=== PATIENT | male | born 1965 | race Two or more races ===

== ENCOUNTER → 2025-08-02 | Outpatient (CLI) | payer MEDICARE, MEDICAID, SELFPAY ==
--- NOTE | 2025-08-02 | XR_ITS ---
EXAMINATIONS: Transforaminal epidural steroid injection, lumbar, single level, includes fluoro guidance, right L4-L5. Fluoroscopy Opioid lumbar spine single view INDICATIONS: Lower right-sided back pain months. Exam date and time: August 02, 20252003 hours Technique And Findings: Patient is positioned prone on the fluoroscopic table. Oblique fluoroscopic views obtained. Local anesthesia is obtained with 1% lidocaine. 22-gauge needle was advanced toward the 6:00 position of the pedicle. Fluoroscopy is utilized to ensure the needle tip is within the safe triangle After negative aspiration for blood and CSF, 40 mg Depo-Medrol is injected without difficulty. Patient tolerated the procedure well and in satisfactory and stable condition upon completion of procedure. Estimated blood loss 0 cc IMPRESSION: Successful transforaminal epidural steroid injection as described above Fluoroscopy 0.2-minute radiation dose 4.20 mGy 1 spot fluoroscopic lumbar spine film.
--- NOTE | 2025-08-02 | XR_ITS ---
EXAMINATIONS: Transforaminal epidural steroid injection, lumbar, single level, includes fluoro guidance, right L5-S1. Fluoroscopy OPL lumbar spine single view INDICATIONS: Lower right-sided back pain minus. Exam date and time: August 02, 2025, 12:23 p.m. Technique And Findings: Patient is positioned prone on the fluoroscopic table. Oblique fluoroscopic views obtained. Local anesthesia is obtained with 1% lidocaine. 22-gauge needle was advanced toward the 6:00 position of the pedicle. Fluoroscopy is utilized to ensure the needle tip is within the safe triangle After negative aspiration for blood and CSF, 40 mg triamcinolone is injected without difficulty. Patient tolerated the procedure well and in satisfactory and stable condition upon completion of procedure. Estimated blood loss 0 cc IMPRESSION: Successful transforaminal epidural steroid injection as described above Fluoroscopy 0.2-minute radiation dose 4.20 mGy 1 spot fluoroscopic lumbar spine:.
--- NOTE | 2025-08-02 11:00 | XR_ITS ---
EXAMINATIONS: Transforaminal epidural steroid injection, lumbar, single level, includes fluoro guidance, left L5-S1. Fluoroscopy RPO lumbar spine single view INDICATIONS: Lower back pain radiating to the left lower back months. Exam date and time: August 02, 2025, 12:22 p.m. Technique And Findings: Patient is positioned prone on the fluoroscopic table. Oblique fluoroscopic views obtained. Local anesthesia is obtained with 1% lidocaine. 22-gauge needle was advanced toward the 6:00 position of the pedicle. Fluoroscopy is utilized to ensure the needle tip is within the safe triangle After negative aspiration for blood and CSF, 40 mg triamcinolone is injected without difficulty. Patient tolerated the procedure well and in satisfactory and stable condition upon completion of procedure. Estimated blood loss 0 cc IMPRESSION: Successful transforaminal epidural steroid injection as described above Fluoroscopy 0.2-minute radiation dose 4.20 mGy 1 spot fluoroscopic lumbar spine film.
--- NOTE | 2025-08-02 11:00 | XR_ITS ---
EXAMINATIONS: Transforaminal epidural steroid injection, lumbar, single level, includes fluoro guidance, left L4-L5. Fluoroscopy RPO lumbar spine single view INDICATIONS: Lower back pain radiating to the left side months. Exam date and time: August 02, 2025, 1202 hours Technique And Findings: Patient is positioned prone on the fluoroscopic table. Oblique fluoroscopic views obtained. Local anesthesia is obtained with 1% lidocaine. 22-gauge needle was advanced toward the 6:00 position of the pedicle. Fluoroscopy is utilized to ensure the needle tip is within the safe triangle After negative aspiration for blood and CSF, 40 mg triamcinolone is injected without difficulty. Patient tolerated the procedure well and in satisfactory and stable condition upon completion of procedure. Estimated blood loss 0 cc IMPRESSION: Successful transforaminal epidural steroid injection as described above Fluoroscopy 0.2-minute radiation dose 4.20 mGy 1 spot fluoroscopic lumbar spine films.
== END | disposition home or self-care (01) ==
LOC: SIRX 10:24
PROVIDERS: PCP Family Medicine; Referring Provider Psychiatry & Neurology Neurology; Visit Provider Radiology Diagnostic Radiology
DX: M48.061 Spinal stenosis, lumbar region without neurogenic claudication (principal)
CPT/HCPCS: 64493; 64494 ×2

== ENCOUNTER → 2025-08-16 | Outpatient (CLI) | payer MEDICARE, MEDICAID, SELFPAY ==
--- NOTE | 2025-08-16 | XR_ITS ---
EXAMINATIONS: Transforaminal epidural steroid injection, lumbar, single level, includes fluoro guidance, right L5-S1. Fluoroscopy RPO lumbar spine single view INDICATION: Right-sided lower back pain months. Exam date and time: August 16, 2025 1030 hours Technique And Findings: Patient is positioned prone on the fluoroscopic table. Oblique fluoroscopic views obtained. Local anesthesia is obtained with 1% lidocaine. 22-gauge needle was advanced toward the 6:00 position of the pedicle. Fluoroscopy is utilized to ensure the needle tip is within the safe triangle After negative aspiration for blood and CSF, 1 cc Depo-Medrol is injected without difficulty. Patient tolerated the procedure well and in satisfactory and stable condition upon completion of procedure. Estimated blood loss 0 cc IMPRESSION: Successful transforaminal epidural steroid injection as described above Fluoroscopy 0.3-minute radiation dose 14.56 mGy 1 spot fluoroscopic lumbar spine.
--- NOTE | 2025-08-16 | XR_ITS ---
EXAMINATIONS: Transforaminal epidural steroid injection, lumbar, single level, includes fluoro guidance, right L4-L5. Fluoroscopy No field lumbar spine single view INDICATIONS: Right-sided lower back pain months. Exam date and time: August 16 2025, 1049 hours Technique And Findings: Patient is positioned prone on the fluoroscopic table. Oblique fluoroscopic views obtained. Local anesthesia is obtained with 1% lidocaine. 22-gauge needle was advanced toward the 6:00 position of the pedicle. Fluoroscopy is utilized to ensure the needle tip is within the safe triangle After negative aspiration for blood and CSF, 1 cc Depo-Medrol is injected without difficulty. Patient tolerated the procedure well and in satisfactory and stable condition upon completion of procedure. Estimated blood loss 0 cc IMPRESSION: Successful transforaminal epidural steroid injection as described above Fluoroscopy 0.3-minute radiation dose 14.56 mGy 1 spot fluoroscopic lumbar spine.
--- NOTE | 2025-08-16 10:00 | XR_ITS ---
EXAMINATIONS: Transforaminal epidural steroid injection, lumbar, single level, includes fluoro guidance, left L4-L5 RPO lumbar spine single view. Fluoroscopy Exam date and time: August 16, 2025, 0955 hours INDICATIONS: Left lower back pain months Technique And Findings: Patient is positioned prone on the fluoroscopic table. Oblique fluoroscopic views obtained. Local anesthesia is obtained with 1% lidocaine. 22-gauge needle was advanced toward the 6:00 position of the pedicle. Fluoroscopy is utilized to ensure the needle tip is within the safe triangle After negative aspiration for blood and CSF, 1 cc Depo-Medrol is injected without difficulty. Patient tolerated the procedure well and in satisfactory and stable condition upon completion of procedure. Estimated blood loss 0 cc IMPRESSION: Successful transforaminal epidural steroid injection as described above Fluoroscopy 0.3-minute radiation dose 14.56 mGy 1 spot fluoroscopic lumbar spine film.
--- NOTE | 2025-08-16 10:00 | XR_ITS ---
EXAMINATIONS: Transforaminal epidural steroid injection, lumbar, single level, includes fluoro guidance, left L5-S1. Fluoroscopy RPO lumbar spine single view INDICATIONS: Left-sided lower back pain months. Exam date and time: August 16, 2025, 10:48 a.m. Technique And Findings: Patient is positioned prone on the fluoroscopic table. Oblique fluoroscopic views obtained. Local anesthesia is obtained with 1% lidocaine. 22-gauge needle was advanced toward the 6:00 position of the pedicle. Fluoroscopy is utilized to ensure the needle tip is within the safe triangle After negative aspiration for blood and CSF, 1 cc Depo-Medrol is injected without difficulty. Patient tolerated the procedure well and in satisfactory and stable condition upon completion of procedure. Estimated blood loss 0 cc IMPRESSION: Successful transforaminal epidural steroid injection as described above Fluoroscopy 0.3-minute radiation dose 14.56 mGy 1 spot fluoroscopic lumbar spine film.
== END | disposition home or self-care (01) ==
LOC: SIRX 09:42
PROVIDERS: PCP Psychiatry & Neurology Neurology; Referring Provider Psychiatry & Neurology Neurology; Visit Provider Radiology Diagnostic Radiology
DX: M48.061 Spinal stenosis, lumbar region without neurogenic claudication (principal)
CPT/HCPCS: 64483; 64484; J1010

== ENCOUNTER → 2025-09-04 | Outpatient (CLI) | payer MEDICARE, MEDICAID, SELFPAY ==
--- NOTE | 2025-09-04 | XR_ITS ---
EXAMINATIONS: Transforaminal epidural steroid injection, lumbar, single level, includes fluoro guidance, right L4-L5. Fluoroscopy LPO lumbar spine single view INDICATIONS: Right lower back pain months. Exam date and time: September 04, 2025, 1356 hours Technique And Findings: Patient is positioned prone on the fluoroscopic table. Oblique fluoroscopic views obtained. Local anesthesia is obtained with 1% lidocaine. 22-gauge needle was advanced toward the 6:00 position of the pedicle. Fluoroscopy is utilized to ensure the needle tip is within the safe triangle After negative aspiration for blood and CSF, 1 cc Depo-Medrol is injected without difficulty. Patient tolerated the procedure well and in satisfactory and stable condition upon completion of procedure. Estimated blood loss 0 cc IMPRESSION: Successful transforaminal epidural steroid injection as described above Fluoroscopy 0.2-minute radiation dose 14.13 mGy 1 spot fluoroscopic lumbar spine.
--- NOTE | 2025-09-04 | XR_ITS ---
EXAMINATIONS: Transforaminal epidural steroid injection, lumbar, single level, includes fluoro guidance, left L5-S1. Fluoroscopy RPO lumbar spine single view. Exam date and time: September 04, 2025, 1355 hours INDICATIONS: Left lower back pain months Technique And Findings: Patient is positioned prone on the fluoroscopic table. Oblique fluoroscopic views obtained. Local anesthesia is obtained with 1% lidocaine. 22-gauge needle was advanced toward the 6:00 position of the pedicle. Fluoroscopy is utilized to ensure the needle tip is within the safe triangle After negative aspiration for blood and CSF, 1 cc Depo-Medrol is injected without difficulty. Patient tolerated the procedure well and in satisfactory and stable condition upon completion of procedure. Estimated blood loss 0 cc IMPRESSION: Successful transforaminal epidural steroid injection as described above Fluoroscopy 0.2-minute radiation dose 14.13 mGy 1 spot fluoroscopic lumbar spine film.
--- NOTE | 2025-09-04 | XR_ITS ---
EXAMINATIONS: Transforaminal epidural steroid injection, lumbar, single level, includes fluoro guidance, right L5-S1. Fluoroscopy LPO lumbar spine single view INDICATIONS: Lower right sided back pain months. Exam date and time: September 04, 2025, 1356 hours Technique And Findings: Patient is positioned prone on the fluoroscopic table. Oblique fluoroscopic views obtained. Local anesthesia is obtained with 1% lidocaine. 22-gauge needle was advanced toward the 6:00 position of the pedicle. Fluoroscopy is utilized to ensure the needle tip is within the safe triangle After negative aspiration for blood and CSF 1 cc Depo-Medrol is injected without difficulty. Patient tolerated the procedure well and in satisfactory and stable condition upon completion of procedure. Estimated blood loss 0 cc IMPRESSION: Successful transforaminal epidural steroid injection as described above Fluoroscopy 8.2 minutes radiation dose 14.13 mGy 1 spot fluoroscopic lumbar spine found.
--- NOTE | 2025-09-04 | XR_ITS ---
EXAMINATIONS: Transforaminal epidural steroid injection, lumbar, single level, includes fluoro guidance, left L4-L5. Fluoroscopy RPO lumbar spine single view INDICATIONS: Left lower back pain beginning months ago. Exam date and time: September 04, 2025, 1318 hours Technique And Findings: Patient is positioned prone on the fluoroscopic table. Oblique fluoroscopic views obtained. Local anesthesia is obtained with 1% lidocaine. 22-gauge needle was advanced toward the 6:00 position of the pedicle. Fluoroscopy is utilized to ensure the needle tip is within the safe triangle After negative aspiration for blood and CSF, 1 cc Depo-Medrol is injected without difficulty. Patient tolerated the procedure well and in satisfactory and stable condition upon completion of procedure. Estimated blood loss 0 cc IMPRESSION: Successful transforaminal epidural steroid injection as described above Fluoroscopy 0.2-minute radiation dose 14.13 mGy 1 spot fluoroscopic lumbar spine film.
== END | disposition home or self-care (01) ==
PROVIDERS: PCP Family Medicine; Referring Provider Psychiatry & Neurology Neurology; Visit Provider Radiology Diagnostic Radiology
DX: M48.061 Spinal stenosis, lumbar region without neurogenic claudication (principal)
CPT/HCPCS: 64483; 64484 ×2; J1010